=== PATIENT | female | born 1930 | race Caucasian/White ===

== ENCOUNTER 2017-08-12 07:29 | Observation (INO) ==
[2017-08-12] MEDS ORDERED: ASPIRIN 325 MG TABLET PO ONE (07:53)
[2017-08-12] MEDS ORDERED: DIAZEPAM 5 MG TABLET PO ONE (07:53)
[2017-08-12] MEDS ORDERED: POTASSIUM CHLORIDE RIDER 10 MEQ in PREMIX 1 EACH IV PRN (07:53)
[2017-08-12] MEDS ORDERED: diphenhydrAMINE CAP 25 MG CAPSULE PO ONE (07:53)
[2017-08-12] MEDS ORDERED: MAGNESIUM SULF RIDER 2 GM in PREMIX 1 EACH IV PRN ×2 (07:53→17:32)
[2017-08-12] MEDS: SODIUM CHLORIDE 0.9% 1,000 ML IV SCH ×2 (08:27→22:35)
[2017-08-12] MEDS ORDERED: LIDOCAINE 1% 20 ML VIAL ONE (10:41)
[2017-08-12] MEDS ORDERED: HYDROmorphone 2 MG/1 ML VIAL ONE (10:41)
[2017-08-12] MEDS ORDERED: MIDAZOLAM 2 MG/2 ML VIAL ONE (10:41)
[2017-08-12] MEDS ORDERED: HEPARIN 5,000 UNIT/1 ML VIAL ONE (11:18)
[2017-08-12] MEDS ORDERED: CLOPIDOGREL 300 MG TABLET ONE (12:04)
[2017-08-12] MEDS ORDERED: NITROGLYCERIN SL 0.4 MG TABLET SL PRN (12:47)
[2017-08-12] MEDS ORDERED: ONDANSETRON 4 MG/2 ML VIAL IV PRN (12:47)
[2017-08-12] MEDS ORDERED: ACETAMINOPHEN 325 MG TABLET PO PRN (12:47)
[2017-08-12] MEDS ORDERED: HYDROmorphone 2 MG/1 ML VIAL IV PRN (12:47)
[2017-08-12] MEDS ORDERED: diphenhydrAMINE CAP 25 MG CAPSULE PO PRN (17:32)
[2017-08-12] MEDS ORDERED: POTASSIUM CHLORIDE 20 MEQ TABLET PO PRN (17:32)
[2017-08-12] MEDS ORDERED: MAGNESIUM SULF RIDER 4 GM in PREMIX 1 EACH IV PRN (17:32)
[2017-08-12] MEDS ORDERED: DOCUSATE SODIUM 100 MG CAPSULE PO PRN (17:32)
[2017-08-12] MEDS ORDERED: ZALEPLON 5 MG CAPSULE PO PRN (17:32)
[2017-08-12] MEDS: METOPROLOL SUCCINATE XL 25 MG TABLET PO SCH (19:49)
[2017-08-12] MEDS: ROSUVASTATIN 20 MG TABLET PO SCH (20:37)
[2017-08-12] MEDS: CILOSTAZOL 50 MG TABLET PO SCH (20:37)
[2017-08-13 02:26] LABS: Basophils % 0.6 % (0.0-0.8); Eosinophils # 0.2 10*3/uL (0.0-0.87); Eosinophils % 3.7 % (0.00-10.9); Hematocrit 27.7 VOL% (35.7-47.0); Hemoglobin 9.2 GM/DL (12.0-16.0); Immature Granulocytes % 0.2 %; Immature Granulocytes Absolute 0.01 #; Lymphocytes # 0.7 10*3/uL (1.4-4.0); Lymphocytes % 14.2 % (21.3-54.2); Mean Corpuscular HGB Conc 33.2 GM/DL (32-36); Mean Corpuscular Hemoglobin 30 PG (27-34); Mean Corpuscular Volume 89.9 FL (87-102); Mean Platelet Volume 9.7 FL (9.6-12.0); Monocytes # 0.7 10*3/uL (0.11-0.8); Monocytes % 13.6 % (1.7-12.7); Neutrophils # 3.4 10*3/uL (1.4-7.4); Neutrophils % 67.7 % (38.7-73.9); Platelet Count 229 T/CUMM (130-400); Red Blood Count 3.08 MC/CUMM (3.8-5.5); Red Cell Distribution Width 14.6 % (9.3-17.3); White Blood Count 5.1 T/CUMM (4-12)
[2017-08-13 02:53] LABS: Calcium 7.8 MG/DL (8.5-10.1); Osmolality,Calculated 281.4 MOS/KG (273-304); Potassium 4.1 MMOL/L (3.5-5.1)
[2017-08-13] MEDS ORDERED: ASPIRIN EC 81 MG TABLET PO SCH (09:00)
[2017-08-13] MEDS: amLODIPine 5 MG TABLET PO SCH (09:47)
[2017-08-13] MEDS: PANTOPRAZOLE 40 MG TABLET PO SCH (09:47)
[2017-08-13] MEDS: CLOPIDOGREL 75 MG TABLET PO SCH (09:47)
[2017-08-13] MEDS: CILOSTAZOL 50 MG TABLET PO SCH ×2 (09:47→21:53)
[2017-08-13] MEDS: METOPROLOL SUCCINATE XL 25 MG TABLET PO SCH (09:47)
[2017-08-13] MEDS: ASPIRIN EC 81 MG TABLET PO SCH (09:47)
[2017-08-13] MEDS ORDERED: METOPROLOL SUCCINATE XL 25 MG TABLET PO ONE (17:01)
[2017-08-13] MEDS: ROSUVASTATIN 20 MG TABLET PO SCH (21:53)
[2017-08-14] MEDS ORDERED: THROMBIN TOPICAL (RECOMBINANT) 5,000 UNIT VIAL TOP ONE (09:01)
[2017-08-14] MEDS: CLOPIDOGREL 75 MG TABLET PO SCH (11:14)
[2017-08-14] MEDS: ASPIRIN EC 81 MG TABLET PO SCH (11:14)
[2017-08-14] MEDS: amLODIPine 5 MG TABLET PO SCH (11:14)
[2017-08-14] MEDS: CILOSTAZOL 50 MG TABLET PO SCH (11:14)
[2017-08-14] MEDS: METOPROLOL SUCCINATE XL 25 MG TABLET PO SCH (11:15)
[2017-08-14] MEDS: PANTOPRAZOLE 40 MG TABLET PO SCH (11:15)
[2017-08-14 16:42] VITALS: BP 136/54
== END 2017-08-14 18:26 | disposition home or self-care (01) ==
LOC: N.CL 07:29 → N.5E 07:29 → N.CL 07:49 → N.5E 16:58
PROVIDERS: ADMIT Internal Medicine Cardiovascular Disease; ATTEND Internal Medicine Cardiovascular Disease

== ENCOUNTER 2018-12-12 20:53 | Observation (INO) ==
[2018-12-12] MEDS ORDERED: methylPREDNISolone SOD SUC 125 MG/2 ML VIAL ONE (21:01)
[2018-12-12] MEDS ORDERED: diphenhydrAMINE 50 MG/1 ML VIAL ONE (21:01)
[2018-12-12] MEDS ORDERED: SODIUM CHLORIDE 0.9% 500 ML IV STA (21:14)
[2018-12-12] MEDS ORDERED: diphenhydrAMINE 50 MG/1 ML VIAL IV STA (21:16)
[2018-12-12] MEDS ORDERED: methylPREDNISolone SOD SUC 125 MG/2 ML VIAL IV STA (21:16)
[2018-12-12] MEDS ORDERED: FAMOTIDINE 20 MG/2 ML VIAL IV STA (21:16)
[2018-12-12 21:27] LABS: Basophils % 0.7 % (0.0-0.8); Eosinophils # 0.2 10*3/uL (0.0-0.87); Eosinophils % 3.6 % (0.00-10.9); Hematocrit 38.5 VOL% (35.7-47.0); Hemoglobin 11.8 GM/DL (12.0-16.0); Immature Granulocytes % 0.2 %; Immature Granulocytes Absolute 0.01 #; Lymphocytes # 1.9 10*3/uL (1.4-4.0); Lymphocytes % 32.1 % (21.3-54.2); Mean Corpuscular HGB Conc 30.6 GM/DL (32-36); Mean Corpuscular Hemoglobin 27 PG (27-34); Mean Corpuscular Volume 87.9 FL (87-102); Mean Platelet Volume 9.7 FL (9.6-12.0); Monocytes # 0.9 10*3/uL (0.11-0.8); Monocytes % 14.9 % (1.7-12.7); Neutrophils # 2.8 10*3/uL (1.4-7.4); Neutrophils % 48.5 % (38.7-73.9); Platelet Count 290 T/CUMM (130-400); Red Blood Count 4.38 MC/CUMM (3.8-5.5); Red Cell Distribution Width 19.3 % (9.3-17.3); White Blood Count 5.8 T/CUMM (4-12)
[2018-12-12] MEDS ORDERED: hydrALAZINE 20 MG/1 ML VIAL IV STA (21:27)
[2018-12-12 21:37] LABS: Partial Thromboplastin Time 25.4 SECS (0-40)
[2018-12-12 21:54] LABS: Alanine Aminotransferase 21 U/L (13-56); Albumin 3.5 G/DL (3.4-5.0); Alkaline Phosphatase 63 U/L (45-117); Aspartate Amino Transferase 21 U/L (0-37); Bilirubin,Total < 0.39 MG/DL (0.2-1.0); Blood Urea Nitrogen 27 MG/DL (7-18); Calcium 8.6 MG/DL (8.5-10.1); Glucose 126 MG/DL (74-106); Osmolality,Calculated 287.3 MOS/KG (273-304); Potassium 3.7 MMOL/L (3.5-5.1); Sodium 141 MMOL/L (136-145); Total Protein 7.2 G/DL (6.4-8.3)
[2018-12-12] MEDS ORDERED: METOPROLOL TARTRATE 5 MG/5 ML VIAL IV STA (22:21)
[2018-12-12 22:59] LABS: Apearance,Urine CLEAR (Clear); Bacteria,Urine Occasional /HPF (Few); Bilirubin,Urine Negative (Negative); Blood, Urine Negative (Negative); Glucose,Urine (UA) Negative (Negative); Ketones,Urine Negative (Negative); Nitrite,Urine Negative (Negative); Protein,Urine 30 MG/DL; RBC,Urine 1 /HPF (0-4); Urine Color Colorless (Yellow); Urine Specific Gravity 1.004 (1.001-1.035); Urine Urobilinogen < 2.0 EU/DL (0.2-1.0); WBC,Urine <1 /HPF (0-6)
[2018-12-13] MEDS ORDERED: MORPHINE 4 MG/1 ML VIAL IV PRN (00:25)
[2018-12-13] MEDS ORDERED: DOCUSATE SODIUM 100 MG CAPSULE PO PRN (00:25)
[2018-12-13] MEDS ORDERED: ACETAMINOPHEN 325 MG TABLET PO PRN (00:25)
[2018-12-13] MEDS ORDERED: ONDANSETRON 4 MG/2 ML VIAL IV PRN (00:25)
[2018-12-13] MEDS ORDERED: SODIUM CHLORIDE 0.9% 1,000 ML IV SCH (00:30)
[2018-12-13] MEDS ORDERED: hydrALAZINE 20 MG/1 ML VIAL IV PRN (00:33)
[2018-12-13 05:07] LABS: Free T4 (Free Thyroxine) 0.96 NG/DL (0.76-1.46)
[2018-12-13] MEDS ORDERED: ENOXAPARIN 30 MG/0.3 ML SYRINGE SUBCUT SCH (09:00)
[2018-12-13] MEDS ORDERED: ASPIRIN EC 81 MG TABLET PO SCH (09:00)
[2018-12-13] MEDS ORDERED: CLOPIDOGREL 75 MG TABLET PO SCH (09:00)
[2018-12-13] MEDS ORDERED: PANTOPRAZOLE 40 MG TABLET PO SCH (09:00)
[2018-12-13 12:29] VITALS: BP 145/66
[2018-12-13] MEDS ORDERED: POTASSIUM CHLORIDE 10 MEQ TABLET PO SCH (12:30)
[2018-12-13] MEDS ORDERED: DILTIAZEM CD 240 MG CAPSULE PO SCH (12:30)
[2018-12-13] MEDS ORDERED: ASCORBIC ACID 500 MG TABLET PO SCH (21:00)
[2018-12-14] MEDS ORDERED: LEVOTHYROXINE 75 MCG TABLET PO SCH (06:30)
== END 2018-12-13 15:26 | disposition home or self-care (01) ==
LOC: N.EDINP 20:53 → N.ED 20:53 → N.TELEN 12-13 00:40
PROVIDERS: ADMIT Phlebology; ATTEND Phlebology

== ENCOUNTER 2018-12-15 20:59 | Inpatient (IN) ==
[2018-12-15 23:13] LABS: Basophils % 0.1 % (0.0-0.8); Eosinophils % 0.5 % (0.00-10.9); Hematocrit 33.6 VOL% (35.7-47.0); Hemoglobin 10.4 GM/DL (12.0-16.0); Immature Granulocytes % 0.4 %; Immature Granulocytes Absolute 0.03 #; Lymphocytes # 0.6 10*3/uL (1.4-4.0); Lymphocytes % 7.9 % (21.3-54.2); Mean Corpuscular Hemoglobin 27 PG (27-34); Mean Corpuscular Volume 87.5 FL (87-102); Mean Platelet Volume 9.8 FL (9.6-12.0); Monocytes # 0.9 10*3/uL (0.11-0.8); Monocytes % 11.9 % (1.7-12.7); Neutrophils # 6.2 10*3/uL (1.4-7.4); Neutrophils % 79.2 % (38.7-73.9); Platelet Count 240 T/CUMM (130-400); Red Blood Count 3.84 MC/CUMM (3.8-5.5); Red Cell Distribution Width 19.9 % (9.3-17.3); White Blood Count 7.8 T/CUMM (4-12)
[2018-12-15 23:23] LABS: Alanine Aminotransferase 56 U/L (13-56); Albumin 3.4 G/DL (3.4-5.0); Alkaline Phosphatase 76 U/L (45-117); Aspartate Amino Transferase 49 U/L (0-37); Bilirubin,Total < 0.39 MG/DL (0.2-1.0); Blood Urea Nitrogen 21 MG/DL (7-18); Calcium 8.6 MG/DL (8.5-10.1); Glucose 109 MG/DL (74-106); Osmolality,Calculated 286.1 MOS/KG (273-304); Potassium 3.8 MMOL/L (3.5-5.1); Sodium 142 MMOL/L (136-145)
[2018-12-15] MEDS ORDERED: NITROGLYCERIN 2% OINT 1 INCH/GM PACK TOP STA (23:24)
[2018-12-15] MEDS ORDERED: ASPIRIN 325 MG TABLET PO STA (23:24)
[2018-12-15] MEDS ORDERED: ENOXAPARIN 30 MG/0.3 ML SYRINGE SUBCUT STA (23:26)
[2018-12-15] MEDS ORDERED: ENOXAPARIN 40 MG/0.4 ML SYRINGE ONE (23:39)
[2018-12-16] MEDS ORDERED: ZALEPLON 5 MG CAPSULE PO PRN (00:36)
[2018-12-16] MEDS ORDERED: ACETAMINOPHEN 325 MG TABLET PO PRN (00:36)
[2018-12-16] MEDS ORDERED: MORPHINE 4 MG/1 ML VIAL IV PRN (00:36)
[2018-12-16] MEDS ORDERED: ONDANSETRON 4 MG/2 ML VIAL IV PRN (00:36)
[2018-12-16 01:39] LABS: Risk Ratio 3.38; VLDL CHOLESTEROL 23.4 MG/DL
[2018-12-16] MEDS: NITROGLYCERIN 2% OINT 1 INCH/GM PACK TOP SCH ×3 (06:15→19:35)
[2018-12-16] MEDS ORDERED: FUROSEMIDE 40 MG/4 ML VIAL IV SCH (08:00)
[2018-12-16] MEDS ORDERED: ASPIRIN EC 325 MG TABLET PO SCH (09:00)
[2018-12-16] MEDS ORDERED: DIAZEPAM 5 MG TABLET PO ONE (11:14)
[2018-12-16] MEDS ORDERED: diphenhydrAMINE CAP 25 MG CAPSULE PO ONE (11:14)
[2018-12-16] MEDS ORDERED: MAGNESIUM SULF RIDER 2 GM in PREMIX 1 EACH IV PRN (11:14)
[2018-12-16] MEDS ORDERED: POTASSIUM CHLORIDE RIDER 10 MEQ in PREMIX 1 EACH IV PRN (11:14)
[2018-12-16] MEDS ORDERED: ENOXAPARIN 60 MG/0.6 ML SYRINGE SUBCUT SCH (11:30)
[2018-12-16] MEDS ORDERED: NITROGLYCERIN DRIP 50 MG/250 ML BOTTLE IV ONE (12:30)
[2018-12-16] MEDS ORDERED: HEPARIN/NACL 0.9% 2 UNITS/ML 1,000 ML IV ONE (12:30)
[2018-12-16] MEDS ORDERED: LIDOCAINE 1% 20 ML VIAL ONE (12:30)
[2018-12-16] MEDS ORDERED: VERAPAMIL 5 MG/2 ML VIAL ONE ×2 (12:31→12:48)
[2018-12-16] MEDS ORDERED: HYDROmorphone 2 MG/1 ML VIAL ONE (12:32)
[2018-12-16] MEDS ORDERED: MIDAZOLAM 2 MG/2 ML VIAL ONE (12:32)
[2018-12-16] MEDS ORDERED: LABETALOL 20 MG/4 ML SYRINGE IV ONE (12:43)
[2018-12-16] MEDS ORDERED: ENOXAPARIN 30 MG/0.3 ML SYRINGE ONE (12:49)
[2018-12-16] MEDS ORDERED: SODIUM CHLORIDE 0.9% 1,000 ML IV SCH (13:00)
[2018-12-16] MEDS: LEVOTHYROXINE 75 MCG TABLET PO SCH (13:44)
[2018-12-16] MEDS: METOPROLOL SUCCINATE XL 25 MG TABLET PO SCH (15:18)
[2018-12-16] MEDS: FERROUS SULFATE 325 MG TABLET PO SCH (15:18)
[2018-12-16] MEDS: ATORVASTATIN 80 MG TABLET PO SCH (15:18)
[2018-12-16] MEDS: DILTIAZEM CD 240 MG CAPSULE PO SCH ×2 (15:18→18:40)
[2018-12-16] MEDS: LOSARTAN 50 MG TABLET PO SCH (17:28)
[2018-12-16] MEDS: APIXABAN 2.5 MG TABLET PO SCH (20:50)
[2018-12-17] MEDS ORDERED: DIGOXIN 0.5 MG/2 ML AMP IV ONE (00:09)
[2018-12-17 04:59] LABS: Basophils % 0.5 % (0.0-0.8); Eosinophils # 0.1 10*3/uL (0.0-0.87); Hematocrit 30.5 VOL% (35.7-47.0); Hemoglobin 9.4 GM/DL (12.0-16.0); Immature Granulocytes % 0.2 %; Immature Granulocytes Absolute 0.01 #; Lymphocytes # 0.8 10*3/uL (1.4-4.0); Lymphocytes % 19.8 % (21.3-54.2); Mean Corpuscular HGB Conc 30.8 GM/DL (32-36); Mean Corpuscular Hemoglobin 27 PG (27-34); Mean Corpuscular Volume 88.9 FL (87-102); Mean Platelet Volume 10.6 FL (9.6-12.0); Monocytes # 0.6 10*3/uL (0.11-0.8); Monocytes % 13.9 % (1.7-12.7); Neutrophils # 2.6 10*3/uL (1.4-7.4); Neutrophils % 63.6 % (38.7-73.9); Platelet Count 224 T/CUMM (130-400); Red Blood Count 3.43 MC/CUMM (3.8-5.5); Red Cell Distribution Width 20.2 % (9.3-17.3); White Blood Count 4.1 T/CUMM (4-12)
[2018-12-17 05:18] LABS: Albumin 2.8 G/DL (3.4-5.0); Bilirubin,Total 0.5 MG/DL (0.2-1.0); Potassium 3.9 MMOL/L (3.5-5.1); Total Protein 5.9 G/DL (6.4-8.3)
[2018-12-17] MEDS: NITROGLYCERIN 2% OINT 1 INCH/GM PACK TOP SCH ×3 (05:52→12:32)
[2018-12-17] MEDS: LEVOTHYROXINE 75 MCG TABLET PO SCH (06:10)
[2018-12-17] MEDS ORDERED: ASPIRIN EC 81 MG TABLET PO SCH (09:00)
[2018-12-17] MEDS ORDERED: SPIRONOLACTONE 25 MG TABLET PO SCH (09:00)
[2018-12-17] MEDS: APIXABAN 2.5 MG TABLET PO SCH (10:10)
[2018-12-17] MEDS: ATORVASTATIN 80 MG TABLET PO SCH (10:10)
[2018-12-17] MEDS: FERROUS SULFATE 325 MG TABLET PO SCH (10:10)
[2018-12-17] MEDS: LOSARTAN 50 MG TABLET PO SCH (10:10)
[2018-12-17] MEDS: DILTIAZEM CD 240 MG CAPSULE PO SCH (10:11)
[2018-12-17] MEDS: METOPROLOL SUCCINATE XL 25 MG TABLET PO SCH (10:13)
[2018-12-17] MEDS ORDERED: ASCORBIC ACID 500 MG TABLET PO SCH (10:30)
[2018-12-17 12:03] VITALS: BP 152/53
[2018-12-17] MEDS ORDERED: MAGNESIUM CHLORIDE 64 MG TABLET PO SCH (13:30)
[2018-12-17] MEDS ORDERED: METOPROLOL SUCCINATE XL 25 MG TABLET PO SCH (21:00)
== END 2018-12-17 14:35 | disposition home or self-care (01) | DRG 280 ==
LOC: EDBD → EDUNIT# → N.ED 20:59 → N.EDINP 12-16 00:36 → N.TELEN 12-16 12:56
PROVIDERS: ADMIT Internal Medicine; ATTEND Internal Medicine

== ENCOUNTER 2019-12-13 10:22 | Observation (INO) ==
[2019-12-13] MEDS ORDERED: DILTIAZEM 50 MG/10 ML VIAL IV STA (10:43)
[2019-12-13 11:02] LABS: Basophils % 0.5 % (0.0-0.8); Eosinophils # 0.1 10*3/uL (0.0-0.87); Eosinophils % 0.8 % (0.00-10.9); Hematocrit 38.6 VOL% (35.7-47.0); Hemoglobin 12.1 GM/DL (12.0-16.0); Immature Granulocytes % 0.5 %; Immature Granulocytes Absolute 0.03 #; Lymphocytes # 0.7 10*3/uL (1.4-4.0); Mean Corpuscular HGB Conc 31.3 GM/DL (32-36); Mean Corpuscular Volume 91.7 FL (87-102); Mean Platelet Volume 9.5 FL (9.6-12.0); Monocytes % 9.7 % (1.7-12.7); Neutrophils % 77.5 % (38.7-73.9); Platelet Count 272 T/CUMM (130-400); Red Blood Count 4.21 MC/CUMM (3.8-5.5); Red Cell Distribution Width 14.7 % (9.3-17.3); White Blood Count 6.3 T/CUMM (4-12)
[2019-12-13 11:10] LABS: INR 1.1; PT Patient Result 11.9 SECS (9.6-12.2); Partial Thromboplastin Time 30.3 SECS (20.8-36.0)
[2019-12-13 11:29] LABS: Albumin 3.8 G/DL (3.4-5.0); Bilirubin,Total 0.4 MG/DL (0.2-1.0); Calcium 9.5 MG/DL (8.5-10.1); Total Protein 7.6 G/DL (6.4-8.3)
[2019-12-13] MEDS: dilTIAZem Drip 125 MG/125 ML PREMIX IV SCH (11:38)
[2019-12-13] MEDS ORDERED: ENOXAPARIN 40 MG/0.4 ML SYRINGE SUBCUT STA (11:55)
[2019-12-13] MEDS ORDERED: CALCIUM CARBONATE CHEW 500 MG TABLET PO PRN (13:29)
[2019-12-13] MEDS ORDERED: hydrALAZINE 20 MG/1 ML VIAL IV PRN (13:29)
[2019-12-13] MEDS ORDERED: ACETAMINOPHEN 325 MG TABLET PO PRN (13:29)
[2019-12-13] MEDS ORDERED: MAGNESIUM SULF RIDER 4 GM in PREMIX 1 EACH IV PRN (13:29)
[2019-12-13] MEDS ORDERED: LACTULOSE 20 GM/30 ML UDCUP PO PRN (13:29)
[2019-12-13] MEDS ORDERED: guaiFENesin/DM ER 600-30 MG TABLET PO PRN (13:29)
[2019-12-13] MEDS ORDERED: ONDANSETRON 4 MG/2 ML VIAL IV PRN (13:29)
[2019-12-13] MEDS ORDERED: MORPHINE 4 MG/1 ML VIAL IV PRN (13:29)
[2019-12-13] MEDS ORDERED: ZALEPLON 5 MG CAPSULE PO PRN (13:29)
[2019-12-13] MEDS ORDERED: diphenhydrAMINE CAP 25 MG CAPSULE PO PRN (13:29)
[2019-12-13] MEDS ORDERED: SIMETHICONE CHEW 125 MG TABLET PO PRN (13:29)
[2019-12-13] MEDS ORDERED: BISACODYL 5 MG TABLET PO PRN (13:29)
[2019-12-13] MEDS ORDERED: MAGNESIUM SULF RIDER 2 GM in PREMIX 1 EACH IV PRN (13:29)
[2019-12-13] MEDS ORDERED: POTASSIUM CHLORIDE 20 MEQ TABLET PO PRN (13:29)
[2019-12-13] MEDS ORDERED: ALUMINUM/MAGNES/SIMETH MAX STR 30 ML UDCUP PO PRN (13:29)
[2019-12-13] MEDS: ASCORBIC ACID 500 MG TABLET PO SCH ×2 (18:25→23:03)
[2019-12-13 19:01] LABS: CKMB % 6.6 %
[2019-12-13 19:18] LABS: Troponin I 2.2 NG/ML (0.00-0.045)
[2019-12-13] MEDS ORDERED: ENOXAPARIN 40 MG/0.4 ML SYRINGE SUBCUT ONE (19:58)
[2019-12-13] MEDS ORDERED: ASPIRIN CHEW 81 MG TABLET PO ONE (20:02)
[2019-12-13 20:20] LABS: CKMB % 9.1 %
[2019-12-13 20:24] LABS: Troponin I 2.17 NG/ML (0.00-0.045)
[2019-12-13] MEDS ORDERED: METOPROLOL SUCCINATE XL 25 MG TABLET PO SCH (21:00)
[2019-12-13] MEDS ORDERED: LOSARTAN 50 MG TABLET PO SCH (21:00)
[2019-12-13] MEDS ORDERED: APIXABAN 2.5 MG TABLET PO SCH (21:00)
[2019-12-13] MEDS ORDERED: ENOXAPARIN 80 MG/0.8 ML SYRINGE SUBCUT SCH (22:00)
[2019-12-13] MEDS: AMIODARONE 200 MG TABLET PO SCH (23:04)
[2019-12-14] MEDS: NITROGLYCERIN 2% OINT 1 INCH/GM PACK TOP SCH ×3 (01:15→15:18)
[2019-12-14 05:32] LABS: Basophils # 0.1 10*3/uL (0.0-0.2); Basophils % 1.1 % (0.0-0.8); Eosinophils # 0.1 10*3/uL (0.0-0.87); Eosinophils % 2.5 % (0.00-10.9); Hematocrit 32.5 VOL% (35.7-47.0); Hemoglobin 10.3 GM/DL (12.0-16.0); Immature Granulocytes % 0.2 %; Immature Granulocytes Absolute 0.01 #; Lymphocytes # 1.4 10*3/uL (1.4-4.0); Lymphocytes % 28.6 % (21.3-54.2); Mean Corpuscular HGB Conc 31.7 GM/DL (32-36); Mean Corpuscular Volume 91.8 FL (87-102); Mean Platelet Volume 9.6 FL (9.6-12.0); Monocytes % 10.7 % (1.7-12.7); Neutrophils % 56.9 % (38.7-73.9); Platelet Count 226 T/CUMM (130-400); Red Blood Count 3.54 MC/CUMM (3.8-5.5); Red Cell Distribution Width 14.7 % (9.3-17.3); White Blood Count 4.8 T/CUMM (4-12)
[2019-12-14] MEDS ORDERED: ENOXAPARIN 80 MG/0.8 ML SYRINGE SUBCUT SCH (06:00)
[2019-12-14 06:11] LABS: Calcium 8.8 MG/DL (8.5-10.1); Osmolality,Calculated 285.4 MOS/KG (273-304); Thyroid Stimulating Hormone 5.78 uIU/ml (0.358-3.74)
[2019-12-14] MEDS ORDERED: LEVOTHYROXINE 25 MCG TABLET PO SCH (07:00)
[2019-12-14 07:17] LABS: Apearance,Urine CLOUDY (Clear); Bacteria,Urine Many /HPF (Few); Bilirubin,Urine Negative (Negative); Blood, Urine Moderate mg/dL (Negative); Glucose,Urine (UA) Negative (Negative); Ketones,Urine Negative (Negative); Mucus,Urine Occasional /LPF (Occasional); Nitrite,Urine Positive (Negative); Protein,Urine Negative; Red Blood Cell Casts,Urine 3 /LPF (<1); Squamous Epithelial Cell,Urine Occasional /HPF (0-10); Urine Color Yellow (Yellow); Urine Specific Gravity 1.011 (1.001-1.035); Urine Urobilinogen < 2.0 EU/DL (0.2-1.0); WBC,Urine 75 /HPF (0-6)
[2019-12-14] MEDS ORDERED: SPIRONOLACTONE 25 MG TABLET PO SCH (09:00)
[2019-12-14] MEDS ORDERED: ROSUVASTATIN 20 MG TABLET PO SCH (09:00)
[2019-12-14] MEDS ORDERED: PANTOPRAZOLE 40 MG TABLET PO SCH (09:00)
[2019-12-14] MEDS: AMIODARONE 200 MG TABLET PO SCH (09:14)
[2019-12-14] MEDS: ASCORBIC ACID 500 MG TABLET PO SCH (09:14)
[2019-12-14 12:13] VITALS: BP 137/59
[2019-12-14] MEDS: dilTIAZem Drip 125 MG/125 ML PREMIX IV SCH (15:18)
== END 2019-12-14 15:17 | disposition home or self-care (01) ==
LOC: N.ED 10:22 → N.EDINP 10:22 → N.TELEN 16:03
PROVIDERS: ADMIT Internal Medicine Cardiovascular Disease; ATTEND Internal Medicine Cardiovascular Disease

== ENCOUNTER 2020-02-25 23:07 | Inpatient (IN) ==
[2020-02-25] MEDS ORDERED: ASPIRIN 325 MG TABLET PO STA (23:44)
[2020-02-26 00:23] LABS: Basophils % 0.6 % (0.0-0.8); Eosinophils # 0.2 10*3/uL (0.0-0.87); Eosinophils % 3.1 % (0.00-10.9); Hematocrit 34.5 VOL% (35.7-47.0); Hemoglobin 10.9 GM/DL (12.0-16.0); Immature Granulocytes % 0.4 %; Immature Granulocytes Absolute 0.02 #; Lymphocytes # 0.6 10*3/uL (1.4-4.0); Lymphocytes % 11.7 % (21.3-54.2); Mean Corpuscular HGB Conc 31.6 GM/DL (32-36); Mean Corpuscular Volume 94.5 FL (87-102); Mean Platelet Volume 9.4 FL (9.6-12.0); Monocytes % 12.7 % (1.7-12.7); Neutrophils % 71.5 % (38.7-73.9); Platelet Count 215 T/CUMM (130-400); Red Blood Count 3.65 MC/CUMM (3.8-5.5); Red Cell Distribution Width 15.7 % (9.3-17.3); White Blood Count 5.1 T/CUMM (4-12)
[2020-02-26 00:54] LABS: Alanine Aminotransferase 34 U/L (13-56); Albumin 3.3 G/DL (3.4-5.0); Alkaline Phosphatase 72 U/L (45-117); Aspartate Amino Transferase 28 U/L (0-37); Bilirubin,Total < 0.39 MG/DL (0.2-1.0); Blood Urea Nitrogen 21 MG/DL (7-18); Calcium 8.8 MG/DL (8.5-10.1); Estimated Glom Filtration Rate 23 ML/MIN; Glucose 95 MG/DL (74-106); Osmolality,Calculated 275.8 MOS/KG (273-304); Total Protein 6.9 G/DL (6.4-8.3)
[2020-02-26] MEDS ORDERED: NITROGLYCERIN SL 0.4 MG TABLET SL STA (00:58)
[2020-02-26] MEDS ORDERED: MAGNESIUM SULF RIDER 2 GM in PREMIX 1 EACH IV PRN (01:10)
[2020-02-26] MEDS ORDERED: MAGNESIUM SULF RIDER 4 GM in PREMIX 1 EACH IV PRN (01:10)
[2020-02-26] MEDS ORDERED: ENOXAPARIN 30 MG/0.3 ML SYRINGE SUBCUT STA (01:14)
[2020-02-26] MEDS ORDERED: hydrALAZINE 20 MG/1 ML VIAL ONE (02:18)
[2020-02-26] MEDS ORDERED: hydrALAZINE 20 MG/1 ML VIAL IV STA (02:23)
[2020-02-26] MEDS ORDERED: METOPROLOL TARTRATE 5 MG/5 ML VIAL IV ONE ×2 (02:37→09:59)
[2020-02-26] MEDS ORDERED: METOPROLOL TARTRATE 5 MG/5 ML VIAL IV STA ×2 (02:37→02:41)
[2020-02-26] MEDS ORDERED: hydrALAZINE 20 MG/1 ML VIAL IV PRN (03:11)
[2020-02-26] MEDS ORDERED: MORPHINE 4 MG/1 ML VIAL IV PRN (05:05)
[2020-02-26 05:17] LABS: Basophils # 0.1 10*3/uL (0.0-0.2); Basophils % 0.6 % (0.0-0.8); Eosinophils # 0.1 10*3/uL (0.0-0.87); Eosinophils % 1.5 % (0.00-10.9); Hematocrit 37.1 VOL% (35.7-47.0); Hemoglobin 11.6 GM/DL (12.0-16.0); Immature Granulocytes % 0.4 %; Immature Granulocytes Absolute 0.03 #; Lymphocytes # 0.9 10*3/uL (1.4-4.0); Lymphocytes % 11.2 % (21.3-54.2); Mean Corpuscular HGB Conc 31.3 GM/DL (32-36); Mean Corpuscular Volume 95.4 FL (87-102); Mean Platelet Volume 9.4 FL (9.6-12.0); Monocytes % 9.2 % (1.7-12.7); Neutrophils % 77.1 % (38.7-73.9); Platelet Count 250 T/CUMM (130-400); Red Blood Count 3.89 MC/CUMM (3.8-5.5); Red Cell Distribution Width 15.6 % (9.3-17.3); White Blood Count 8.2 T/CUMM (4-12)
[2020-02-26] MEDS: NITROGLYCERIN 2% OINT 1 INCH/GM PACK TOP SCH ×4 (05:19→22:00)
[2020-02-26 05:50] LABS: Calcium 9.4 MG/DL (8.5-10.1); Osmolality,Calculated 278.8 MOS/KG (273-304)
[2020-02-26] MEDS: ASPIRIN EC 81 MG TABLET PO SCH (17:19)
[2020-02-26] MEDS: amLODIPine 2.5 MG TABLET PO SCH (17:19)
[2020-02-26] MEDS: LOSARTAN 50 MG TABLET PO SCH (21:02)
[2020-02-26] MEDS: APIXABAN 2.5 MG TABLET PO SCH (21:03)
[2020-02-26] MEDS: carvediloL 6.25 MG TABLET PO SCH (21:03)
[2020-02-26] MEDS: ACETAMINOPHEN 325 MG TABLET PO PRN (21:03)
[2020-02-27] MEDS: LEVOTHYROXINE 50 MCG TABLET PO SCH (05:49)
[2020-02-27] MEDS: NITROGLYCERIN 2% OINT 1 INCH/GM PACK TOP SCH ×3 (05:49→16:42)
[2020-02-27] MEDS: amLODIPine 2.5 MG TABLET PO SCH (09:17)
[2020-02-27] MEDS: carvediloL 6.25 MG TABLET PO SCH ×2 (09:17→16:42)
[2020-02-27] MEDS: APIXABAN 2.5 MG TABLET PO SCH (09:18)
[2020-02-27] MEDS: LOSARTAN 50 MG TABLET PO SCH ×2 (09:18→20:59)
[2020-02-27] MEDS: SPIRONOLACTONE 25 MG TABLET PO SCH (09:18)
[2020-02-27] MEDS: ASPIRIN EC 81 MG TABLET PO SCH (09:18)
[2020-02-27] MEDS: ROSUVASTATIN 20 MG TABLET PO SCH (09:18)
[2020-02-27] MEDS: CALCIUM CARBONATE CHEW 500 MG TABLET PO PRN (19:40)
[2020-02-28] MEDS: NITROGLYCERIN 2% OINT 1 INCH/GM PACK TOP SCH ×4 (00:48→16:14)
[2020-02-28] MEDS: LEVOTHYROXINE 50 MCG TABLET PO SCH (05:40)
[2020-02-28] MEDS: carvediloL 6.25 MG TABLET PO SCH ×2 (09:18→16:12)
[2020-02-28] MEDS: LOSARTAN 50 MG TABLET PO SCH ×2 (09:18→21:07)
[2020-02-28] MEDS ORDERED: diphenhydrAMINE CAP 25 MG CAPSULE PO ONE (10:19)
[2020-02-28] MEDS ORDERED: DIAZEPAM 5 MG TABLET PO ONE (10:19)
[2020-02-28 10:48] LABS: Basophils % 0.8 % (0.0-0.8); Eosinophils # 0.2 10*3/uL (0.0-0.87); Hematocrit 35.8 VOL% (35.7-47.0); Hemoglobin 11.7 GM/DL (12.0-16.0); Immature Granulocytes % 0.4 %; Immature Granulocytes Absolute 0.02 #; Lymphocytes # 0.9 10*3/uL (1.4-4.0); Lymphocytes % 17.5 % (21.3-54.2); Mean Corpuscular HGB Conc 32.7 GM/DL (32-36); Mean Corpuscular Volume 93.2 FL (87-102); Mean Platelet Volume 9.5 FL (9.6-12.0); Monocytes % 12.3 % (1.7-12.7); Platelet Count 280 T/CUMM (130-400); Red Blood Count 3.84 MC/CUMM (3.8-5.5); Red Cell Distribution Width 15.8 % (9.3-17.3)
[2020-02-28 11:20] LABS: Calcium 9.3 MG/DL (8.5-10.1); Osmolality,Calculated 276.8 MOS/KG (273-304)
[2020-02-28] MEDS: ROSUVASTATIN 20 MG TABLET PO SCH (11:40)
[2020-02-28] MEDS: ASPIRIN EC 81 MG TABLET PO SCH (11:40)
[2020-02-28] MEDS: SPIRONOLACTONE 25 MG TABLET PO SCH (11:40)
[2020-02-28] MEDS: amLODIPine 2.5 MG TABLET PO SCH (11:41)
[2020-02-28] MEDS ORDERED: LIDOCAINE 1%/EPI INJ 20 ML VIAL ONE ×2 (12:07→12:09)
[2020-02-28] MEDS ORDERED: TISSUE ADHESIVE 1 EACH APPLICATOR TOP ONE (12:07)
[2020-02-28] MEDS ORDERED: ceFAZolin 1,000 MG VIAL ONE (12:07)
[2020-02-28] MEDS ORDERED: MIDAZOLAM 2 MG/2 ML VIAL ONE (12:34)
[2020-02-28] MEDS ORDERED: HYDROmorphone 2 MG/1 ML VIAL ONE (12:34)
[2020-02-28] MEDS: ASCORBIC ACID 500 MG TABLET PO SCH (21:07)
[2020-02-29] MEDS: NITROGLYCERIN 2% OINT 1 INCH/GM PACK TOP SCH ×4 (00:32→16:51)
[2020-02-29 05:36] LABS: Basophils % 0.5 % (0.0-0.8); Eosinophils # 0.2 10*3/uL (0.0-0.87); Eosinophils % 3.7 % (0.00-10.9); Hemoglobin 10.5 GM/DL (12.0-16.0); Immature Granulocytes % 0.3 %; Immature Granulocytes Absolute 0.02 #; Lymphocytes # 0.8 10*3/uL (1.4-4.0); Lymphocytes % 14.1 % (21.3-54.2); Mean Corpuscular HGB Conc 31.8 GM/DL (32-36); Mean Platelet Volume 9.5 FL (9.6-12.0); Monocytes % 11.7 % (1.7-12.7); Neutrophils % 69.7 % (38.7-73.9); Platelet Count 214 T/CUMM (130-400); Red Blood Count 3.51 MC/CUMM (3.8-5.5); Red Cell Distribution Width 15.8 % (9.3-17.3)
[2020-02-29 05:59] LABS: Calcium 8.7 MG/DL (8.5-10.1)
[2020-02-29] MEDS: LEVOTHYROXINE 50 MCG TABLET PO SCH (06:15)
[2020-02-29] MEDS: ROSUVASTATIN 20 MG TABLET PO SCH (09:06)
[2020-02-29] MEDS: ASPIRIN EC 81 MG TABLET PO SCH (09:07)
[2020-02-29] MEDS: carvediloL 6.25 MG TABLET PO SCH ×2 (09:07→16:51)
[2020-02-29] MEDS: ASCORBIC ACID 500 MG TABLET PO SCH ×2 (09:07→21:52)
[2020-02-29] MEDS: LOSARTAN 50 MG TABLET PO SCH ×2 (09:07→21:52)
[2020-02-29] MEDS: amLODIPine 2.5 MG TABLET PO SCH (09:07)
[2020-02-29] MEDS: SPIRONOLACTONE 25 MG TABLET PO SCH (09:07)
[2020-02-29] MEDS: CALCIUM CARBONATE CHEW 500 MG TABLET PO PRN (11:35)
[2020-03-01] MEDS: NITROGLYCERIN 2% OINT 1 INCH/GM PACK TOP SCH ×5 (00:23→23:27)
[2020-03-01] MEDS: LEVOTHYROXINE 50 MCG TABLET PO SCH (06:19)
[2020-03-01] MEDS ORDERED: LIDOCAINE 1%/EPI INJ 20 ML VIAL ONE (08:38)
[2020-03-01] MEDS ORDERED: propofoL 200 MG/20 ML VIAL IV ONE (10:01)
[2020-03-01] MEDS ORDERED: LIDOCAINE 2% 5 ML VIAL ONE (10:02)
[2020-03-01] MEDS ORDERED: ETOMIDATE 40 MG/20 ML VIAL IV ONE (10:02)
[2020-03-01] MEDS: hydrALAZINE 20 MG/1 ML VIAL IV SCH ×2 (10:13→11:46)
[2020-03-01] MEDS: SPIRONOLACTONE 25 MG TABLET PO SCH (11:34)
[2020-03-01] MEDS: ROSUVASTATIN 20 MG TABLET PO SCH (11:34)
[2020-03-01] MEDS: amLODIPine 2.5 MG TABLET PO SCH (11:34)
[2020-03-01] MEDS: LOSARTAN 50 MG TABLET PO SCH ×2 (11:35→21:34)
[2020-03-01] MEDS: ASPIRIN EC 81 MG TABLET PO SCH (11:35)
[2020-03-01] MEDS: carvediloL 6.25 MG TABLET PO SCH (11:35)
[2020-03-01] MEDS: ASCORBIC ACID 500 MG TABLET PO SCH ×2 (11:39→21:34)
[2020-03-01 11:45] LABS: Basophils % 0.7 % (0.0-0.8); Eosinophils # 0.1 10*3/uL (0.0-0.87); Hematocrit 33.2 VOL% (35.7-47.0); Hemoglobin 10.3 GM/DL (12.0-16.0); Immature Granulocytes % 0.5 %; Immature Granulocytes Absolute 0.03 #; Lymphocytes # 0.7 10*3/uL (1.4-4.0); Mean Corpuscular Volume 95.7 FL (87-102); Mean Platelet Volume 9.8 FL (9.6-12.0); Monocytes % 12.5 % (1.7-12.7); Neutrophils % 72.3 % (38.7-73.9); Platelet Count 191 T/CUMM (130-400); Red Blood Count 3.47 MC/CUMM (3.8-5.5); Red Cell Distribution Width 15.6 % (9.3-17.3)
[2020-03-01 12:01] LABS: Calcium 9.4 MG/DL (8.5-10.1)
[2020-03-01] MEDS: carvediloL 12.5 MG TABLET PO SCH (16:49)
[2020-03-02 05:58] LABS: Basophils % 0.6 % (0.0-0.8); Eosinophils # 0.2 10*3/uL (0.0-0.87); Eosinophils % 4.4 % (0.00-10.9); Hematocrit 28.7 VOL% (35.7-47.0); Hemoglobin 9.3 GM/DL (12.0-16.0); Immature Granulocytes % 0.4 %; Immature Granulocytes Absolute 0.02 #; Lymphocytes # 0.7 10*3/uL (1.4-4.0); Mean Corpuscular HGB Conc 32.4 GM/DL (32-36); Mean Corpuscular Volume 92.3 FL (87-102); Mean Platelet Volume 10.1 FL (9.6-12.0); Monocytes % 15.9 % (1.7-12.7); Neutrophils % 65.7 % (38.7-73.9); Platelet Count 187 T/CUMM (130-400); Red Blood Count 3.11 MC/CUMM (3.8-5.5); Red Cell Distribution Width 15.4 % (9.3-17.3); White Blood Count 5.2 T/CUMM (4-12)
[2020-03-02 06:12] LABS: Calcium 8.6 MG/DL (8.5-10.1); Osmolality,Calculated 272.2 MOS/KG (273-304)
[2020-03-02] MEDS: LEVOTHYROXINE 50 MCG TABLET PO SCH (06:17)
[2020-03-02] MEDS: NITROGLYCERIN 2% OINT 1 INCH/GM PACK TOP SCH ×2 (06:17→11:29)
[2020-03-02 07:11] LABS: Anisocytosis 1+; Band Neutrophils 6 % (0-10); Eosinophils 8 % (0-10); Lymphocytes 12 % (20-55); Ovalocytes Few; Platelet Estimate Normal; Segmented Neutrophils 63 % (50-85); Total Cells Counted 100
[2020-03-02] MEDS: amLODIPine 2.5 MG TABLET PO SCH (09:51)
[2020-03-02] MEDS: ASCORBIC ACID 500 MG TABLET PO SCH ×2 (09:51→21:58)
[2020-03-02] MEDS: SPIRONOLACTONE 25 MG TABLET PO SCH (09:51)
[2020-03-02] MEDS: ROSUVASTATIN 20 MG TABLET PO SCH (09:51)
[2020-03-02] MEDS: carvediloL 12.5 MG TABLET PO SCH ×2 (09:51→16:25)
[2020-03-02] MEDS: ASPIRIN EC 81 MG TABLET PO SCH (09:52)
[2020-03-02] MEDS: LOSARTAN 50 MG TABLET PO SCH ×2 (09:52→21:58)
[2020-03-02] MEDS: APIXABAN 2.5 MG TABLET PO SCH (21:58)
[2020-03-03 05:07] LABS: Basophils % 0.5 % (0.0-0.8); Eosinophils # 0.3 10*3/uL (0.0-0.87); Eosinophils % 5.7 % (0.00-10.9); Hematocrit 28.7 VOL% (35.7-47.0); Hemoglobin 9.3 GM/DL (12.0-16.0); Immature Granulocytes % 0.2 %; Immature Granulocytes Absolute 0.01 #; Lymphocytes # 0.5 10*3/uL (1.4-4.0); Lymphocytes % 12.3 % (21.3-54.2); Mean Corpuscular HGB Conc 32.4 GM/DL (32-36); Mean Platelet Volume 9.7 FL (9.6-12.0); Monocytes % 13.7 % (1.7-12.7); Neutrophils % 67.6 % (38.7-73.9); Platelet Count 171 T/CUMM (130-400); Red Blood Count 3.12 MC/CUMM (3.8-5.5); Red Cell Distribution Width 15.6 % (9.3-17.3); White Blood Count 4.4 T/CUMM (4-12)
[2020-03-03 05:24] LABS: Calcium 8.5 MG/DL (8.5-10.1); Osmolality,Calculated 279.7 MOS/KG (273-304)
[2020-03-03] MEDS: LEVOTHYROXINE 50 MCG TABLET PO SCH (06:40)
[2020-03-03] MEDS: ASCORBIC ACID 500 MG TABLET PO SCH ×2 (08:53→20:58)
[2020-03-03] MEDS: carvediloL 12.5 MG TABLET PO SCH ×2 (08:53→16:58)
[2020-03-03] MEDS: LOSARTAN 50 MG TABLET PO SCH ×2 (08:53→20:58)
[2020-03-03] MEDS: amLODIPine 2.5 MG TABLET PO SCH (08:54)
[2020-03-03] MEDS: ROSUVASTATIN 20 MG TABLET PO SCH (08:54)
[2020-03-03] MEDS: SPIRONOLACTONE 25 MG TABLET PO SCH (08:54)
[2020-03-03] MEDS: APIXABAN 2.5 MG TABLET PO SCH ×2 (08:54→20:58)
[2020-03-03] MEDS: ASPIRIN EC 81 MG TABLET PO SCH (08:54)
[2020-03-04] MEDS: LEVOTHYROXINE 50 MCG TABLET PO SCH (05:37)
[2020-03-04 05:55] LABS: Basophils % 0.5 % (0.0-0.8); Eosinophils # 0.3 10*3/uL (0.0-0.87); Eosinophils % 5.2 % (0.00-10.9); Hematocrit 28.9 VOL% (35.7-47.0); Hemoglobin 9.3 GM/DL (12.0-16.0); Immature Granulocytes % 0.4 %; Immature Granulocytes Absolute 0.02 #; Lymphocytes # 0.6 10*3/uL (1.4-4.0); Lymphocytes % 11.2 % (21.3-54.2); Mean Corpuscular HGB Conc 32.2 GM/DL (32-36); Mean Corpuscular Volume 92.6 FL (87-102); Monocytes % 13.9 % (1.7-12.7); Neutrophils % 68.8 % (38.7-73.9); Platelet Count 180 T/CUMM (130-400); Red Blood Count 3.12 MC/CUMM (3.8-5.5); Red Cell Distribution Width 15.5 % (9.3-17.3); White Blood Count 5.6 T/CUMM (4-12)
[2020-03-04 06:31] LABS: Calcium 8.5 MG/DL (8.5-10.1)
[2020-03-04] MEDS: ASCORBIC ACID 500 MG TABLET PO SCH ×2 (10:14→21:07)
[2020-03-04] MEDS: carvediloL 12.5 MG TABLET PO SCH ×2 (10:14→18:09)
[2020-03-04] MEDS: ROSUVASTATIN 20 MG TABLET PO SCH (10:14)
[2020-03-04] MEDS: amLODIPine 2.5 MG TABLET PO SCH (10:14)
[2020-03-04] MEDS: ASPIRIN EC 81 MG TABLET PO SCH (10:15)
[2020-03-04] MEDS: APIXABAN 2.5 MG TABLET PO SCH ×2 (10:15→21:05)
[2020-03-04] MEDS: SPIRONOLACTONE 25 MG TABLET PO SCH (10:15)
[2020-03-04] MEDS: LOSARTAN 50 MG TABLET PO SCH ×2 (10:19→21:05)
[2020-03-05] MEDS: LEVOTHYROXINE 50 MCG TABLET PO SCH (06:12)
[2020-03-05] MEDS: carvediloL 12.5 MG TABLET PO SCH ×2 (09:12→17:06)
[2020-03-05] MEDS: ASCORBIC ACID 500 MG TABLET PO SCH ×2 (09:12→21:07)
[2020-03-05] MEDS: amLODIPine 2.5 MG TABLET PO SCH (09:12)
[2020-03-05] MEDS: ROSUVASTATIN 20 MG TABLET PO SCH (09:12)
[2020-03-05] MEDS: ASPIRIN EC 81 MG TABLET PO SCH (09:13)
[2020-03-05] MEDS: SPIRONOLACTONE 25 MG TABLET PO SCH (09:13)
[2020-03-05] MEDS: LOSARTAN 50 MG TABLET PO SCH ×2 (09:13→21:07)
[2020-03-05] MEDS: APIXABAN 2.5 MG TABLET PO SCH ×3 (09:13→21:09)
[2020-03-05] MEDS: CALCIUM CARBONATE CHEW 500 MG TABLET PO PRN (21:07)
[2020-03-06] MEDS: ACETAMINOPHEN 325 MG TABLET PO PRN ×2 (05:16→11:58)
[2020-03-06] MEDS: LEVOTHYROXINE 50 MCG TABLET PO SCH (05:34)
[2020-03-06 06:02] LABS: Basophils # 0.1 10*3/uL (0.0-0.2); Basophils % 1.1 % (0.0-0.8); Eosinophils # 0.3 10*3/uL (0.0-0.87); Eosinophils % 7.2 % (0.00-10.9); Hematocrit 28.2 VOL% (35.7-47.0); Hemoglobin 8.9 GM/DL (12.0-16.0); Immature Granulocytes % 0.4 %; Immature Granulocytes Absolute 0.02 #; Lymphocytes # 0.8 10*3/uL (1.4-4.0); Lymphocytes % 16.3 % (21.3-54.2); Mean Corpuscular HGB Conc 31.6 GM/DL (32-36); Mean Platelet Volume 9.8 FL (9.6-12.0); Monocytes % 14.3 % (1.7-12.7); Neutrophils % 60.7 % (38.7-73.9); Platelet Count 210 T/CUMM (130-400); White Blood Count 4.6 T/CUMM (4-12)
[2020-03-06 06:29] LABS: Calcium 9.2 MG/DL (8.5-10.1)
[2020-03-06] MEDS ORDERED: LIDOCAINE 1%/EPI INJ 20 ML VIAL ONE (08:10)
[2020-03-06] MEDS ORDERED: LIDOCAINE 1% 20 ML VIAL ONE (08:35)
[2020-03-06] MEDS ORDERED: DOXYCYCLINE HYCLATE INJ 200 MG, LIDOCAINE 1% INJ 20 ML in STERILE WATER INJ 30 ML INTRAPLEUR ONE (09:00)
[2020-03-06] MEDS ORDERED: HYDROmorphone 2 MG/1 ML VIAL ONE (09:59)
[2020-03-06] MEDS ORDERED: HYDROmorphone 2 MG/1 ML VIAL IV PRN (10:00)
[2020-03-06] MEDS ORDERED: ONDANSETRON 4 MG/2 ML VIAL ONE (10:00)
[2020-03-06] MEDS ORDERED: ONDANSETRON 4 MG/2 ML VIAL IV PRN (10:00)
[2020-03-06] MEDS ORDERED: hydrALAZINE 20 MG/1 ML VIAL ONE (10:00)
[2020-03-06] MEDS ORDERED: ETOMIDATE 40 MG/20 ML VIAL IV ONE (10:16)
[2020-03-06] MEDS ORDERED: LIDOCAINE 2% 5 ML VIAL ONE (10:16)
[2020-03-06] MEDS ORDERED: propofoL 200 MG/20 ML VIAL IV ONE (10:16)
[2020-03-06] MEDS: ROSUVASTATIN 20 MG TABLET PO SCH (12:00)
[2020-03-06] MEDS: SPIRONOLACTONE 25 MG TABLET PO SCH (12:01)
[2020-03-06] MEDS: carvediloL 12.5 MG TABLET PO SCH ×2 (12:01→17:42)
[2020-03-06] MEDS: ASCORBIC ACID 500 MG TABLET PO SCH ×2 (12:01→21:27)
[2020-03-06] MEDS: amLODIPine 2.5 MG TABLET PO SCH (12:01)
[2020-03-06] MEDS: ASPIRIN EC 81 MG TABLET PO SCH (12:01)
[2020-03-06] MEDS: APIXABAN 2.5 MG TABLET PO SCH ×2 (12:01→21:27)
[2020-03-06] MEDS: LOSARTAN 50 MG TABLET PO SCH ×2 (12:01→21:27)
[2020-03-06] MEDS ORDERED: KETOROLAC 30 MG/1 ML VIAL IV ONE (12:59)
[2020-03-06] MEDS ORDERED: traMADol 50 MG TABLET PO PRN (13:00)
[2020-03-07 06:37] LABS: Basophils % 0.3 % (0.0-0.8); Eosinophils # 0.2 10*3/uL (0.0-0.87); Eosinophils % 4.2 % (0.00-10.9); Hematocrit 27.9 VOL% (35.7-47.0); Hemoglobin 8.8 GM/DL (12.0-16.0); Immature Granulocytes % 0.5 %; Immature Granulocytes Absolute 0.03 #; Lymphocytes # 0.5 10*3/uL (1.4-4.0); Lymphocytes % 9.2 % (21.3-54.2); Mean Corpuscular HGB Conc 31.5 GM/DL (32-36); Mean Corpuscular Volume 95.2 FL (87-102); Monocytes % 12.4 % (1.7-12.7); Neutrophils % 73.4 % (38.7-73.9); Platelet Count 205 T/CUMM (130-400); Red Blood Count 2.93 MC/CUMM (3.8-5.5); Red Cell Distribution Width 15.3 % (9.3-17.3); White Blood Count 5.7 T/CUMM (4-12)
[2020-03-07] MEDS: LEVOTHYROXINE 50 MCG TABLET PO SCH (06:37)
[2020-03-07 07:07] LABS: Calcium 8.7 MG/DL (8.5-10.1); Osmolality,Calculated 282.7 MOS/KG (273-304)
[2020-03-07] MEDS: ASPIRIN EC 81 MG TABLET PO SCH (08:38)
[2020-03-07] MEDS: ROSUVASTATIN 20 MG TABLET PO SCH (08:38)
[2020-03-07] MEDS: LOSARTAN 50 MG TABLET PO SCH ×2 (08:38→21:56)
[2020-03-07] MEDS: amLODIPine 2.5 MG TABLET PO SCH (08:38)
[2020-03-07] MEDS: carvediloL 12.5 MG TABLET PO SCH ×2 (08:38→17:41)
[2020-03-07] MEDS: ASCORBIC ACID 500 MG TABLET PO SCH ×2 (08:38→21:56)
[2020-03-07] MEDS: APIXABAN 2.5 MG TABLET PO SCH ×2 (08:39→21:56)
[2020-03-07] MEDS: SPIRONOLACTONE 25 MG TABLET PO SCH (08:39)
[2020-03-08 05:50] LABS: Basophils % 0.3 % (0.0-0.8); Eosinophils # 0.2 10*3/uL (0.0-0.87); Eosinophils % 3.3 % (0.00-10.9); Hematocrit 26.4 VOL% (35.7-47.0); Hemoglobin 8.4 GM/DL (12.0-16.0); Immature Granulocytes % 0.5 %; Immature Granulocytes Absolute 0.03 #; Lymphocytes # 0.7 10*3/uL (1.4-4.0); Lymphocytes % 11.2 % (21.3-54.2); Mean Corpuscular HGB Conc 31.8 GM/DL (32-36); Mean Platelet Volume 9.8 FL (9.6-12.0); Monocytes % 12.4 % (1.7-12.7); Neutrophils % 72.3 % (38.7-73.9); Platelet Count 196 T/CUMM (130-400); Red Blood Count 2.84 MC/CUMM (3.8-5.5); Red Cell Distribution Width 15.2 % (9.3-17.3)
[2020-03-08 06:05] LABS: Osmolality,Calculated 278.1 MOS/KG (273-304)
[2020-03-08] MEDS: LEVOTHYROXINE 50 MCG TABLET PO SCH (06:08)
[2020-03-08] MEDS: ROSUVASTATIN 20 MG TABLET PO SCH (09:10)
[2020-03-08] MEDS: amLODIPine 2.5 MG TABLET PO SCH (09:10)
[2020-03-08] MEDS: carvediloL 12.5 MG TABLET PO SCH ×2 (09:10→16:39)
[2020-03-08] MEDS: ASPIRIN EC 81 MG TABLET PO SCH (09:10)
[2020-03-08] MEDS: LOSARTAN 50 MG TABLET PO SCH ×2 (09:10→21:27)
[2020-03-08] MEDS: ASCORBIC ACID 500 MG TABLET PO SCH ×2 (09:10→21:27)
[2020-03-08] MEDS: APIXABAN 2.5 MG TABLET PO SCH ×2 (09:10→21:27)
[2020-03-08] MEDS: SPIRONOLACTONE 25 MG TABLET PO SCH (09:10)
[2020-03-09] MEDS: LEVOTHYROXINE 50 MCG TABLET PO SCH (06:09)
[2020-03-09 07:09] LABS: Basophils % 0.6 % (0.0-0.8); Eosinophils # 0.3 10*3/uL (0.0-0.87); Eosinophils % 5.2 % (0.00-10.9); Hematocrit 28.1 VOL% (35.7-47.0); Hemoglobin 8.7 GM/DL (12.0-16.0); Immature Granulocytes % 0.4 %; Immature Granulocytes Absolute 0.02 #; Lymphocytes # 0.7 10*3/uL (1.4-4.0); Lymphocytes % 13.8 % (21.3-54.2); Mean Corpuscular Volume 94.9 FL (87-102); Mean Platelet Volume 9.7 FL (9.6-12.0); Platelet Count 218 T/CUMM (130-400); Red Blood Count 2.96 MC/CUMM (3.8-5.5); Red Cell Distribution Width 15.1 % (9.3-17.3); White Blood Count 4.8 T/CUMM (4-12)
[2020-03-09 07:24] LABS: Calcium 8.7 MG/DL (8.5-10.1); Osmolality,Calculated 278.8 MOS/KG (273-304)
[2020-03-09] MEDS: ROSUVASTATIN 20 MG TABLET PO SCH (09:22)
[2020-03-09] MEDS: LOSARTAN 50 MG TABLET PO SCH (09:22)
[2020-03-09] MEDS: APIXABAN 2.5 MG TABLET PO SCH (09:22)
[2020-03-09] MEDS: ASCORBIC ACID 500 MG TABLET PO SCH (09:22)
[2020-03-09] MEDS: amLODIPine 2.5 MG TABLET PO SCH (09:22)
[2020-03-09] MEDS: carvediloL 12.5 MG TABLET PO SCH (09:22)
[2020-03-09] MEDS: SPIRONOLACTONE 25 MG TABLET PO SCH (09:22)
[2020-03-09] MEDS: ASPIRIN EC 81 MG TABLET PO SCH (09:23)
[2020-03-09 11:52] VITALS: BP 143/51
== END 2020-03-09 12:40 | disposition home or self-care (01) | DRG 243 ==
LOC: EDUNIT# → EDBD → N.ED 23:07 → N.EDINP 23:07 → N.TELES 02-26 03:49
PROVIDERS: ADMIT Internal Medicine Clinical Cardiac Electrophysiology; ATTEND Internal Medicine Clinical Cardiac Electrophysiology